=== PATIENT | female | born 1955 | race Caucasian/White ===

== ENCOUNTER 2020-06-15 13:24 | Outpatient (CLI) | payer MEDICARE, MEDICAID, SELFPAY ==
--- NOTE | 2020-06-15 13:35 | MR_ITS ---
WS: [id number] MRI HEAD WITH CONTRAST TECHNIQUE: Sagittal T1, T2 axial, T2 axial FLAIR, axial susceptibility weighted imaging, axial diffus ion weighted images, and coronal T2 images were obtained. Pre and post-T1 axial and post T1 coronal i mages. ADC and FSPGR images. CLINICAL INFORMATION: DURAL ARTERIOVENOUS MALFORMATION COMPARISON: MRI 2006 FINDINGS: No evidence of restricted diffusion to suggest acute ischemia. Ventricular system and basal cisterns are patent. Mild supratentorial and infratentorial white matter changes consistent with small vessel disease. Small vessel changes in the ariadne. Mild parenchymal volume loss. Small vessel changes have sl ightly progressed since 2006. No hemosiderin on the susceptibility weighted images. Normal posterior fossa. Normal vascular flow vo ids at the skull base. No extra-axial fluid collections. No evidence of mass or mass effect. Paranasa l sinuses and mastoid air cells are well aerated. Normal optic chiasm and pituitary infundibulum. Tem poral lobes and hippocampal formations are normal in appearance. No asymmetric hippocampal atrophy. N o abnormal gadolinium enhancement. Incidental partially empty sella. No abnormal gadolinium enhanceme nt. Normal dural venous sinuses. MR/MR head wo/w con [id number] IMPRESSION: 1. No evidence of restricted diffusion to suggest acute ischemia. 2. Mild small vessel changes with mild parenchymal volume loss progressed sinc e 2006. 3. No extra-axial fluid collections. No evidence of mass or mass effect. 4. No abnormal intracranial enhancement. 5. Normal optic chiasm and pituitary infundibulum. 6. No other significant findings.
== END 2020-06-15 13:25 | disposition home or self-care (01) ==
LOC: RADSHAW 13:31
PROVIDERS: PCP Family Medicine; Visit Provider Neurological Surgery
DX: Q27.39 Arteriovenous malformation, other site (principal)
CPT/HCPCS: 70553; A9579

== ENCOUNTER 2020-06-22 10:45 | Outpatient (CLI) | payer MEDICARE, MEDICAID, SELFPAY ==
--- NOTE | 2020-06-22 10:52 | MR_ITS ---
WS: [id number] MRI CERVICAL SPINE NONCONTRAST AND CONTRAST TECHNIQUE: Sagittal T1, T2 and STIR imaging. Axial T2, gradient, and fiesta imaging. Post gadolinium imaging with fat saturation technique. CLINICAL INFORMATION: DURAL ARTERIOVENOUS MALFORMATION COMPARISON: None. FINDINGS: Mild spondylitic changes. Cord signal is normal. No high-grade central canal stenosis. No abnormal ga dolinium enhancement. No enhancing intraspinal or intramedullary lesions. No cord atrophy. C2-C3: Mild left and no significant right foraminal narrowing. Spinal canal is patent. C3-C4: Disc osteophyte complex with endplate ridging. Mild central canal stenosis. Severe left and no significant right foraminal narrowing. Spinal canal is patent. Moderate facet arthropathy. C4-C5: Disc osteophyte complex with endplate ridging. Mild left and no significant right foraminal na rrowing. Moderate facet arthropathy. Spinal canal is patent. C5-C6: Disc osteophyte complex with endplate ridging. Mild central canal stenosis. Mild to moderate b ilateral bony foraminal narrowing. Moderate facet arthropathy. C6-C7: Disc osteophyte complex with endplate ridging. Slight contact of the cervical cord. Mild centr al canal stenosis. Mild left and no significant right foraminal narrowing. Moderate facet arthropathy . C7-T1: Mild left and no significant right foraminal narrowing. Spinal canal is patent. T2 hyperintense right thyroid nodule measuring 1.3 CM. MR/MR cervical spine wo/w [id number] IMPRESSION: 1. Straightening of the normal cervical lordosis. 2. No enhancing intramedullary or central canal vascular malformation or abnor mal gadolinium enhancement. 3. Cord signal is normal. 4. Mild central canal stenosis due to disc osteophyte complexes at C3-C4, C4-C 5, C5-C6 and C6-C7. 5. Severe left C3-C4 bony foraminal narrowing.
== END 2020-06-22 10:46 | disposition home or self-care (01) ==
LOC: RADSHAW 10:49
PROVIDERS: PCP Family Medicine; Visit Provider Neurological Surgery
DX: Q04.9 Congenital malformation of brain, unspecified (principal); M48.02 Spinal stenosis, cervical region; M25.78 Osteophyte, vertebrae
CPT/HCPCS: 72156; A9579

== ENCOUNTER 2020-06-23 11:29 | Outpatient (CLI) | payer MEDICARE, MEDICAID, SELFPAY ==
--- NOTE | 2020-06-23 11:35 | MR_ITS ---
WS: [id number] MRI THORACIC SPINE WITH CONTRAST TECHNIQUE: Sagittal T1, T2 and STIR imaging. Axial T2 imaging. Post gadolinium imaging was obtained. CLINICAL INFORMATION: DURAL ARTERIOVENOUS MALFORMATION FINDINGS: Mild thoracic kyphosis. Mild thoracic curve. No acute compression. No high-grade central canal stenos is. Schmorl's nodes in the mid and lower thoracic spine. Disc space narrowing worse at T11-T12. Mild chronic anterior wedging at T11. Tiny central protrusions more prominent at T5-6, T8-T9, T10-T11, and T11-12. Cord signal is normal. No abnormal gadolinium enhancement. No enhancing dural or intraspinal lesions. Moderate facet arthropathy in the lower thoracic spine. MR/MR thoracic spine wo/w [id number] IMPRESSION: 1. Mild thoracic kyphosis. No acute compression. No high-grade central canal s tenosis. 2. Cord signal is normal. No enhancing dural or intraspinal lesions. No dural AV malformation. 3. A few tiny disc protrusions described above. 4. Mild chronic anterior wedging at T11. 5. No other significant findings.
== END 2020-06-23 11:30 | disposition home or self-care (01) ==
LOC: RADSHAW 11:31
PROVIDERS: PCP Family Medicine; Visit Provider Neurological Surgery
DX: Q04.9 Congenital malformation of brain, unspecified (principal); M40.204 Unspecified kyphosis, thoracic region; M51.24 Other intervertebral disc displacement, thoracic region; M48.54XA Collapsed vertebra, not elsewhere classified, thoracic region, initial encounter for fracture; X58.XXXA Exposure to other specified factors, initial encounter
CPT/HCPCS: 72157; A9579

== ENCOUNTER 2021-04-26 13:55 | Outpatient (CLI) | payer MEDICARE, MEDICAID, SELFPAY | END 2021-04-26 13:56 | disposition home or self-care (01) | PROVIDERS: PCP Family Medicine; Visit Provider Internal Medicine | DX: G95.9 Disease of spinal cord, unspecified (principal); B97.3 Retrovirus as the cause of diseases classified elsewhere | CPT/HCPCS: 86689 ==

== ENCOUNTER 2022-05-23 12:51 | Outpatient (CLI) | payer MEDICARE, MEDICAID, SELFPAY ==
--- NOTE | 2022-05-23 13:13 | MM_ITS ---
WS: [id number] BILATERAL 3D TOMOSYNTHESIS DIGITAL SCREENING MAMMOGRAPHY WITH CAD CLINICAL INFORMATION: SCREENING HISTORY: Screening mammogram. No current complaints. COMPARISON: 2018 TECHNIQUE: Bilateral CC and MLO views. FINDINGS: The breasts are composed of heterogeneous fibroglandular density tissue, which can limit the detectio n of small underlying mass lesions. No suspicious mass, asymmetry, calcifications, or architectural d istortion. No evidence of malignancy. Punctate and lucent centered calcifications LEFT breast. MM/[place] [id number] IMPRESSION: BI-RADS: 2-Benign FOLLOW UP: 1 Year Follow-up Recommend return to annual screening mammography.
== END 2022-05-23 12:52 | disposition home or self-care (01) ==
PROVIDERS: PCP Family Medicine; Visit Provider Family Medicine
DX: Z12.31 Encounter for screening mammogram for malignant neoplasm of breast (principal)
CPT/HCPCS: 77063; 77067

== ENCOUNTER 2023-09-16 09:32 | Outpatient (CLI) | payer MEDICARE, MEDICAID, SELFPAY ==
[2023-09-16 11:03] LABS: Alanine Aminotransferase 34 U/L (0-33); Anion Gap 16.1 (5-19); Aspartate Amino Transferase 31 U/L (0-32); Blood Urea Nitrogen 25 mg/dL (8-23); Calcium 9.5 mg/dL (8.5-10.5); Carbon Dioxide 27 mmol/L (22-29); Chloride 104 mmol/L (98-107); Chol HDL Ratio 3.31 mg/dL (0.0-4.40); Cholesterol 212 mg/dL (0-200); Glomerular Filtration Rate 70.9 mL/min (90-130); Glucose 108 mg/dL (65-115); HDL Cholesterol 64 mg/dL (60-100); LDL Cholesterol Calculated 105 mg/dL (50-129); LDL HDL Ratio 1.64 RATIO (0.00-3.22); Osmolality Calculated 301 mOsm/kg (285-295); Potassium 4.1 mmol/L (3.5-5.1); Sodium 143 mmol/L (136-145); Triglycerides 214 mg/dL (0-150)
[2023-09-16 11:49] LABS: 25 Hydroxy Vitamin D 24 ng/mL (30-100)
== END 2023-09-16 09:33 | disposition home or self-care (01) ==
LOC: LAB 09:39
PROVIDERS: PCP Family Medicine; Visit Provider Family Medicine
DX: E55.9 Vitamin D deficiency, unspecified (principal); E78.2 Mixed hyperlipidemia
CPT/HCPCS: 36415; 80048; 80061; 82306; 84450; 84460

== ENCOUNTER 2024-02-06 06:00 | Outpatient (RCR) | payer MEDICARE, MEDICAID, SELFPAY | END 2024-02-09 23:59 | disposition home or self-care (01) | LOC: SOT 06:00 | PROVIDERS: Visit Provider Psychiatry & Neurology Neurology | DX: G11.4 Hereditary spastic paraplegia (principal) | CPT/HCPCS: 97167 ==

== ENCOUNTER → 2024-02-27 09:54 | Outpatient (BNVA) | payer MEDICARE, MEDICAID, SELFPAY | PROVIDERS: PCP Family Medicine; Visit Provider Podiatrist Foot & Ankle Surgery | DX: L60.3 Nail dystrophy (principal); L60.8 Other nail disorders | CPT/HCPCS: 11750; 99203 ==

== ENCOUNTER → 2024-03-12 08:30 | Outpatient (BNVA) | payer MEDICARE, MEDICAID, SELFPAY | PROVIDERS: PCP Family Medicine; Visit Provider Podiatrist Foot & Ankle Surgery | DX: L60.0 Ingrowing nail (principal); Z98.890 Other specified postprocedural states | CPT/HCPCS: 99213 ==

== ENCOUNTER 2024-05-06 12:43 | Outpatient (CLI) | payer MEDICARE, MEDICAID, SELFPAY ==
--- NOTE | 2024-05-06 12:54 | MM_ITS ---
WS: [id number] Bilateral screening 3D tomosynthesis digital mammogram, 05/06/2024 1:00 PM Clinical Data: SCREENING Comparison: 05/23/2022, 04/09/2018, 02/23/2016, 05/02/2010, 08/18/2008. Findings: No spiculated masses or clustered calcifications are seen. There are no secondary signs of carcinoma . There are is scattered fibroglandular tissue. Mole markers are on both breasts. MM/MM scr BI tomosynthesis [id number] Impression: Negative bilateral mammogram unchanged. Recommend annual screening mammograms. BIRADS: 1 - Negative. FOLLOW UP: 1 Year Follow-up DENSITY: There are scattered areas of fibroglandular density. The CAD coat checker was used
--- NOTE | 2024-05-06 12:54 | XR_ITS ---
WS: [id number] DEXA (DUAL ENERGY X-RAY ABSORPTIOMETRY) Bone mineral density was performed using a tracx machine. HISTORY: VITAMIN D DEFICIENCY/OSTEOPENIA/ASYMTOMATIC MENOPAUSAL STATE COMPARISON: 02/23/2016 Lumbar spine BMD (L1-L4): 1.131 g/cm2 T score: -0.4 Z score: 1.5 Total hip BMD: Left: 0.755 g/cm2. T score: -2.0 Z score: -0.3 Right: 0.739 g/cm2. T score: -2.1 Z score: -0.4 10 year probability of a major osteoporotic fracture is 15.4%. Compared to the prior study from 02/23/2060. Lumbar spine bone mineral density has decreased by 2.8%. Bilateral hips bone mineral density has decreased by 6.4%. XR/XR DEXA axial skeleton* [id number] IMPRESSION: OSTEOPENIA based upon the WHO classification for females. Significant decrease in bone mineral density since the prior study within both the lumbar spine and hips.
== END 2024-05-06 12:44 | disposition home or self-care (01) ==
PROVIDERS: PCP Nurse Practitioner Family; Visit Provider Nurse Practitioner Family
DX: Z12.31 Encounter for screening mammogram for malignant neoplasm of breast (principal); Z13.820 Encounter for screening for osteoporosis; R92.323 Mammographic fibroglandular density, bilateral breasts; M85.80 Other specified disorders of bone density and structure, unspecified site; Z78.0 Asymptomatic menopausal state
CPT/HCPCS: 77063; 77067; 77080